=== PATIENT | male | born 1995 | race Caucasian/White ===

== ENCOUNTER 2018-11-05 01:43 | Emergency (ER) | payer OTHER ==
--- NOTE | 2018-11-05 01:48 | C.PDOC ---
History Of Present Illness 23 year old male presents to the ED c/o diffuse urticarial rash and periorbital edema. Patient reports he ate some lobster after which he developed the allergic reaction. Patient took some Benadryl at home however he states swelling and rash worsened. Patient speaking in complete sentences. Patient denies fever, chills, nausea, vomit, SOB, wheezing, lip swelling, tongue swelling. Time Seen by Provider: 11/05/18 01:48 History Per: Patient History/Exam Limitations: no limitations Onset/Duration Of Symptoms: Hrs Current Symptoms Are (Timing): Still Present Context: Food Possible Cause: Food Associated Symptoms: Skin Rash, Swelling Home/EMS Treatment: Benadryl Recent travel outside of the [place]: No Additional History Per: Patient Past Medical History Reviewed: Historical Data, Nursing Documentation, Vital Signs - Medical History PMH: No Chronic Diseases Denies: Anxiety, Bipolar Disorder, Depression, Personality Disorder, Post Traumatic Stress Disorder, Schizophrenia Surgical History: No Surg Hx - [facility] Procedures CLOSURE SKIN & SUBCUTANEOUS NEC (07/03/15) NEBULIZER THERAPY (03/28/03) Family History: States: Unknown Family Hx - Social History Hx Alcohol Use: No Hx Substance Use: No - Immunization History Hx Tetanus Toxoid Vaccination: No Hx Influenza Vaccination: No Hx Pneumococcal Vaccination: No Review Of Systems Constitutional: Negative for: Fever, Chills Eyes: Positive for: Eyelid Inflammation ENT: Negative for: Mouth Swelling, Throat Swelling Respiratory: Negative for: Cough, Shortness of Breath, Wheezing Gastrointestinal: Negative for: Nausea, Vomiting, Abdominal Pain Skin: Positive for: Rash Neurological: Negative for: Weakness, Numbness, Headache, Dizziness Physical Exam - Physical Exam Appears: Non-toxic, No Acute Distress Skin: Warm, Dry, Rash (diffuse urticarial ) Head: Normacephalic, Swelling (bilateral periorbital) Eye(s): bilateral: Normal Inspection, PERRL, EOMI Oral Mucosa: Moist Tongue: No Swelling Lips: No Swelling Throat: No Erythema, No Exudate, No Drooling Neck: Supple Chest: Symmetrical Cardiovascular: Rhythm Regular Respiratory: No Rales, No Rhonchi, No Wheezing Gastrointestinal/Abdominal: Soft, No Tenderness, No Guarding, No Rebound Extremity: Bilateral: Atraumatic, Normal Color And Temperature, Normal ROM Neurological/Psych: Oriented x3, Normal Speech, Normal Cognition Gait: Steady ED Course And Treatment O2 Sat by Pulse Oximetry: 100 Pulse Ox Interpretation: Normal Progress Note: Plan: - IV fluids. - Benadryl 50 mg IVP. - Pepcid 20 mg IVP. - Solumedrol 125 mg IVP Reevaluation Time: 03:23 Reassessment Condition: Improved Critical Care Time - Critical Care Note Total Time (in mins): 30 Documented critical care: time excludes all time spent performing seperately billable procedures. Medical Decision Making Medical Decision Making: Upon provider reevaluation patient is feeling better, is medically stable, and requires no further treatment in the ED at this time. Patient will be discharged home with Rx for epi pen, benadryl . Counseling was provided and all questions were answered regarding diagnosis and need for follow up with dr tinajero. There is agreement to discharge plan. Return if symptoms persist or worsen. pt does not want to wait for more observation., Is aware of all the risks as I've explained at length including , but he states he feels better and wants to leave. Will return if symptoms recur Disposition Counseled Patient/Family Regarding: Studies Performed, Diagnosis, Need For Followup, Rx Given - Disposition Referrals: Shorty Tinajero MD [Medical Doctor] - Disposition: HOME/ ROUTINE Disposition Time: 01:48 Condition: FAIR Additional Instructions: Please also take benadryl, pepcid and claritiin. Do return if symptoms recur Prescriptions: Epinephrine [Epipen] 0.3 mg IJ ONCE PRN #2 auto.[email or web address] PRN Reason: Anaphylaxis Prednisone [Deltasone] 20 mg PO DAILY #5 tablet Instructions: Skin Rash (DC), Hives (DC) - Clinical Impression Clinical Impression: Allergic reaction, Urticaria - Scribe Statement The provider has reviewed the documentation as recorded by the Scribe Jackson Hitchcock All medical record entries made by the Scribe were at my direction and personally dictated by me. I have reviewed the chart and agree that the record accurately reflects my personal performance of the history, physical exam, medical decision making, and the department course for this patient. I have also personally directed, reviewed, and agree with the discharge instructions and disposition.
[2018-11-05] MEDS ORDERED: DiphenhydrAMINE 50 mg/ml Inj ONE (01:52)
[2018-11-05 01:53] VITALS: O2SAT 100
[2018-11-05] MEDS ORDERED: DiphenhydrAMINE 50 mg/ml Inj IVP STA (01:54)
[2018-11-05] MEDS ORDERED: Sodium Chloride 0.9% 1,000 ML IV ONE (01:54)
[2018-11-05] MEDS ORDERED: Sodium Chloride 0.9% 1,000 ML ONE (01:59)
[2018-11-05 03:29] VITALS: BP 123/77; PULSE 81; RESP 16; TEMP 98.4
== END 2018-11-05 03:36 | disposition home or self-care (01) ==
LOC: C.ER 01:43
DX: L50.0 Allergic urticaria (principal)
CPT/HCPCS: 96361; 96374; 96375; 99284; J1200; J2930; J7030